=== PATIENT | male | born 1970 | race Caucasian/White ===

== ENCOUNTER 2020-11-01 13:44 | Emergency (ER) | payer MEDICAID, SELFPAY ==
[2020-11-01 13:45] VITALS: BP 114/76; PULSE 78; RESP 16; TEMP 36.2; O2SAT 95; BMI 25.0
--- NOTE | 2020-11-01 14:54 | ED.VIS.DENTA ---
HPI History of Present Illness Chief Complaint: Dental Narrative Narrative: Patient presenting with right upper dental pain. He states this has been ongoing for a couple of days. Patient denies any fever. He has a dentist but did not go see him. He has not been on any antibiotics. He states today the pain is worse. He is tried anti-inflammatories. He denies difficulty swallowing or breathing. [facility] Medical History (Updated 11/01/20 @ 14:55 by Armand Willoughby) Anxiety Depression Herniated disc Home Medications Atorvastatin Calcium 40 mg PO DAILY 01/09/17 [History Last Taken Unknown] benztropine 0.5 mg PO BID 01/09/17 [History Last Taken Unknown] cyclobenzaprine 10 mg PO TID PRN #20 tablet 01/09/17 [Rx Last Taken Unknown] hydroxyzine pamoate 25 mg PO PRN PRN 01/09/17 [History Last Taken Unknown] lisinopril 10 mg PO DAILY 01/09/17 [History Last Taken Unknown] naproxen 500 mg PO BID PRN #20 tab 01/09/17 [Rx Last Taken Unknown] risperidone 1 mg PO QHS 01/09/17 [History Last Taken Unknown] sertraline [Zoloft] 100 mg PO DAILY 01/09/17 [History Last Taken Unknown] venlafaxine 75 mg PO BID 01/09/17 [History Last Taken Unknown] amoxicillin-pot clavulanate [Augmentin] 1 tab PO Q12H #20 tab 11/01/20 [Rx Last Taken Unknown] naproxen [Naprosyn] 500 mg PO BID PRN #30 tab 11/01/20 [Rx Last Taken Unknown] Allergy/AdvReac Type Severity Reaction Status Date / Time acetaminophen [From Vicodin] Allergy Itching Verified 11/01/20 13:45 hydrocodone [From Vicodin] Allergy Itching Verified 11/01/20 13:45 codeine AdvReac Upset Verified 11/01/20 13:45 Stomach Social History Smoking Status: Current every day smoker tobacco type: cigarettes ROS ROS ED Constitutional Constitutional ED: Denies chills, fever(s) or sweats Eyes Eyes: Denies blurry vision or change in vision ENT ENT ED: Reports other Details: Dental pain ; Denies ear pain, rhinorrhea or sore throat Cardiovascular Cardiovascular: Denies chest pain, palpitations or racing heartbeat Respiratory/Chest Respiratory/Chest: Denies cough, dyspnea or sputum Gastrointestinal Gastrointestinal: Denies abdominal pain, constipation, diarrhea or vomiting Genitourinary Genitourinary ED: Denies dysuria, hematuria or urinary frequency Musculoskeletal Musculoskeletal: Denies arthralgias, myalgias or neck pain Integumentary Denies abscess, Abrasions or rash Neurologic Neurologic: Denies headache(s), paresthesias or weakness Psychiatric Psychiatric: Denies anxiety, depression, suicidal ideation or suicidal thoughts Endocrine Endocrinology: Denies polydipsia or polyuria EXAM Physical Exam Const Vital Signs: 11/01/20 13:45 Temperature 97.2 F L Temperature Source Temporal Pulse Rate 78 Respiratory Rate 16 Blood Pressure 114/76 Blood Pressure Mean 88 Pulse Ox 95 Oxygen Delivery Method Room Air Positive well nourished General Appearance ED: NAD HEENT HEENT Narrative: Widespread dental decay with focal tenderness of the upper mandibular teeth. Mild gingival and facial swelling. No drainage. Negative for trauma Teeth and Gingiva: gingiva abnormal Eyes PERRL and EOMs intact bilaterally Neck no lymphadenopathy and supple Resp normal respiratory effort and clear to auscultation bilaterally Cardio regular rate and regular rhythm Neuro oriented x3 Sensorium / Orientation: alert Psych mental status grossly normal Skin no rashes or lesions noted MDM MDM MDM Narrative Medical decision making narrative: Patient presenting with dental pain. He states he has a dentist but has not seen him. Patient states that he cracked his tooth a long time ago and is now hurting and swelling. Patient will be started on Augmentin with first dose in the ED. He did ask for narcotic pain medication but he stated he is driving. I then stated to him if his family member with him wanted to drive that he could have something for pain here. He then stated he would have her drive. After this she stated she would not be driving but that she wanted to get him something for pain. I counseled him that I cannot give him narcotic pain medication while he is driving. He will be given Naprosyn in the ED. Patient will follow up with his dentist to ensure resolution. Impression: 1. Dental infection Discharge Plan Triage Chief Complaint: Dental ED Provider: Torsten Esposito Dx/Rx/DC Orders Prescriptions: New amoxicillin-pot clavulanate [Augmentin] 875-125 mg tablet 1 tab PO Q12H Qty: 20 RF: 0 naproxen [Naprosyn] 500 mg tablet 500 mg PO BID PRN (Reason: pain) Qty: 30 RF: 0 No Action Atorvastatin Calcium 40 MG tablet 40 mg PO DAILY RF: 0 venlafaxine 75 MG tablet 75 mg PO BID RF: 0 sertraline [Zoloft] 100 MG tablet 100 mg PO DAILY RF: 0 lisinopril 10 MG tablet 10 mg PO DAILY RF: 0 benztropine 2 MG tablet 0.5 mg PO BID RF: 0 risperidone 1 MG tablet 1 mg PO QHS RF: 0 hydroxyzine pamoate 25 MG capsule 25 mg PO PRN PRN (Reason: Anxiety) RF: 0 cyclobenzaprine 10 MG tablet 10 mg PO TID PRN (Reason: Muscle Spasm) Qty: 20 RF: 0 naproxen 500 MG tablet 500 mg PO BID PRN Qty: 20 RF: 0 Primary Care Provider: Care Physician,No Primary Referrals: Care Physician,No Primary [Primary Care Provider] - Disposition Disposition: Home, Self Care
[2020-11-01] MEDS: Amox/Clavulanate 875 MG Tablet PO (14:58)
== END 2020-11-01 15:07 | disposition home or self-care (01) ==
PROVIDERS: Emergency Provider Student in an Organized Health Care Education/Training Program
DX: K04.7 Periapical abscess without sinus (principal); K02.9 Dental caries, unspecified; F32.9 Major depressive disorder, single episode, unspecified; F41.9 Anxiety disorder, unspecified; Z79.899 Other long term (current) drug therapy; F17.210 Nicotine dependence, cigarettes, uncomplicated
CPT/HCPCS: 99283